=== PATIENT | female | born 1975 ===

== ENCOUNTER 2020-12-13 09:00 | Inpatient (IN) | payer OTHER ==
[~2020-12-13] VITALS: Ht 157.5 cm; Wt 93.9 kg
[2020-12-13] MEDS ORDERED: SYNTHROID75 MCG PO (11:37)
[2020-12-19] MEDS ORDERED: [UNRECOGNIZED DRUG - REMARK] (08:33)
[2020-12-19] MEDS ORDERED: FUSION CAPSULE1 EACH (08:33)
== END 2020-12-21 14:58 | disposition home or self-care (01) | DRG 743 ==
LOC: O/R 12-19 05:45 → OB/GYN 12-19 05:45
PROVIDERS: ADMIT Specialist; ATTEND Specialist
PROC: 0UT70ZZ Resection of Bilateral Fallopian Tubes, Open Approach (ICD-10-PCS; 2020-12-19)
PROC: 0USG0ZZ Reposition Vagina, Open Approach (ICD-10-PCS; 2020-12-19)
PROC: 0UT90ZZ Resection of Uterus, Open Approach (ICD-10-PCS; principal; 2020-12-19 07:00)
DX: N80.0 Endometriosis of uterus (principal); R10.2 Pelvic and perineal pain